=== PATIENT | male | born 1970 | race African-American/Black ===

== ENCOUNTER 2019-04-30 02:22 | Emergency (ER) | payer SELFPAY ==
[~2019-04-30] VITALS: Ht 188 cm; Wt 131.5 kg
[2019-04-30 02:31] VITALS: BP 123/84
[2019-04-30] MEDS ORDERED: KEPPRA500 M4 ORAL (02:31)
--- NOTE | 2019-04-30 02:31 | NUR ---
ED Nurse Note: Patient walked in to ER due to 4/10 sharp pain on right chest radiating to the back, SOB at rest since 1999. Pt alert, oriented. Breathing even and unlabored. O2 at 96% RA. Afebrile. VSS.
--- NOTE | 2019-04-30 02:43 | Emergency Room Report ---
History of Present Illness General Chief Complaint: Dyspnea/Respdistress Source: Patient Present Illness HPI This is a 48-year-old male with a history of seizure. He presents with chief complaint of chest pain. Pain started around 6 hours prior to arrival. It is sharp. Localized around the T3-T4 area on the right side. Radiating to the back. Is 8 out of 10. Worse with certain movement. Better with rest. No rash. No diaphoresis. No exertional component. Allergies: Coded Allergies: No Known Allergies (Unverified , 04/25/15) Patient History Past Medical History: see triage record, old chart reviewed Past Surgical History: none Pertinent Family History: none Social History: Denies: smoking Immunizations: other Reviewed Nursing Documentation: PMH: Agreed; PSxH: Agreed Nursing Documentation-PMH Past Medical History: No History, Except For Hx Seizures: Yes Review of Systems Eye: Denies: eye pain, blurred vision ENT: Denies: ear pain, nose congestion, throat swelling Respiratory: Denies: cough, shortness of breath Cardiovascular: Reports: chest pain; Denies: palpitations Gastrointestinal: Denies: abdominal pain, diarrhea, nausea, vomiting Musculoskeletal: Denies: back pain, joint pain Skin: Denies: rash Neurological: Denies: headache, numbness Endocrine: Denies: increased thirst, increased urine Hematologic/Lymphatic: Denies: easy bruising All Other Systems: negative except mentioned in HPI Physical Exam Vital Signs Date Time Temp Pulse Resp B/P (MAP) Pulse Ox O2 Delivery O2 Flow Rate FiO2 04/30/19 02:24 98.4 91 18 123/84 (97) 92 Room Air Vitals normal Sp02 EP Interpretation: reviewed, normal General Appearance: well appearing, no apparent distress, alert, obese Head: normocephalic, atraumatic Eyes: bilateral eye PERRL, bilateral eye EOMI ENT: hearing grossly normal, normal pharynx Neck: full range of motion, supple, no meningismus Respiratory: chest non-tender, lungs clear, normal breath sounds Cardiovascular #1: regular rate, rhythm, no murmur Gastrointestinal: normal bowel sounds, non tender, no mass, no organomegaly, no bruit, non-distended Musculoskeletal: back normal, gait/station normal, normal range of motion Psychiatric: mood/affect normal Medical Decision Making Diagnostic Impression: Primary Impression: Chest pain Qualified Codes: R07.9 - Chest pain, unspecified ER Course Patient with atypical chest pain to the right upper mid chest. No evidence of ACS, PE, dissection to name a few. Chest x-ray is unremarkable. Most likely musculoskeletal. This could also be shingles but there is no rash. Will discharge home. EKG Diagnostic Results Rate: normal Rhythm: NSR ST Segments: no acute changes Rhythm Strip Diag. Results EP Interpretation: yes Rate: 88 Rhythm: NSR, no PVC's, no ectopy Chest X-Ray Diagnostic Results Chest X-Ray Diagnostic Results : Chest X-Ray Ordered: Yes # of Views/Limited/Complete: 1 View Indication: Chest Pain EP Interpretation: Yes Interpretation: no consolidation, no effusion, no pneumothorax, no acute cardiopulmonary disease Impression: No acute disease Electronically Signed by: Richy Melara MD Last Vital Signs Date Time Temp Pulse Resp B/P (MAP) Pulse Ox O2 Delivery O2 Flow Rate FiO2 04/30/19 02:24 98.4 91 18 123/84 (97) 92 Room Air Status: improved Disposition: HOME, SELF-CARE Condition: Stable Scripts Ibuprofen* (MOTRIN*) 600 Mg Tablet 600 MG ORAL THREE TIMES A DAY, #30 TAB 0 Refills Prov: Richy Melara MD 04/30/19 Additional Instructions: Follow up with your doctor in 7 days. Return if symptoms worsen. Richy Melara MD Apr 30, 2019 02:42
[2019-04-30] MEDS ORDERED: Aspirin Baby 81mg ORAL ONE (02:45)
[2019-04-30] MEDS ORDERED: Ketorolac 30mg Inj IV ONE (02:45)
--- NOTE | 2019-04-30 02:51 | NUR ---
ED Nurse Note: Blood and urine collected and sent to lab.
--- NOTE | 2019-04-30 03:03 | NUR ---
ED Nurse Note: Xray at bedside.
[2019-04-30 03:05] LABS: APPEARANCE,URINE CLEAR; BILIRUBIN, URINE NEGATIVE (NEGATIVE); GLUCOSE, URINE (UA) NEGATIVE (NEGATIVE); KETONES,URINE NEGATIVE (NEGATIVE); LEUKOCYTE ESTERASE ,URINE NEGATIVE (NEGATIVE); NITRITE,URINE NEGATIVE (NEGATIVE); PH,URINE 6 (4.5-8.0); PROTEIN,URINE 2+ (NEGATIVE); UROBILINOGEN,URINE 1 MG/DL (0.0-1.0)
[2019-04-30 03:11] LABS: BASOPHILS % (AUTO) 1.4 % (0.0-2.0); EOSINOPHILS % (AUTO) 4.2 % (0.0-3.0); HEMATOCRIT 42.5 % (42.0-52.0); HEMOGLOBIN 14.2 G/DL (14.2-18.0); LYMPHOCYTES % (AUTO) 31.7 % (20.0-45.0); MEAN CORPUSCULAR VOLUME 85 FL (80-99); MONOCYTES % (AUTO) 7.4 % (1.0-10.0); NEUTROPHILS % (AUTO) 55.3 % (45.0-75.0); PLATELET COUNT 288 K/UL (150-450); RED CELL DISTRIBUTION WIDTH 12.7 % (11.6-14.8); WHITE BLOOD COUNT 9.9 K/UL (4.8-10.8)
[2019-04-30 03:13] LABS: COLOR,URINE YELLOW
[2019-04-30 03:16] LABS: ANION GAP 8 mmol/L (5-15); BLOOD UREA NITROGEN 21 mg/dL (7-18); CALCIUM 9.3 MG/DL (8.5-10.1); CARBON DIOXIDE 28 MMOL/L (21-32); CHLORIDE 105 MMOL/L (98-107); CREATININE 0.9 MG/DL (0.55-1.30); SODIUM 141 MMOL/L (136-145)
[2019-04-30 03:20] LABS: ALANINE AMINOTRANSFERASE 68 U/L (12-78); ALBUMIN 3.9 G/DL (3.4-5.0); ALBUMIN/GLOBULIN RATIO 1.1 (1.0-2.7); ALKALINE PHOSPHATASE 52 U/L (46-116); ASPARTATE AMINO TRANSFERASE 27 U/L (15-37); BILIRUBIN,TOTAL 0.3 MG/DL (0.2-1.0)
[2019-04-30] MEDS ORDERED: IBUPROFEN600 MG ORAL (04:07)
[2019-04-30 04:20] VITALS: BP 117/74
--- NOTE | 2019-04-30 04:20 | NUR ---
ED Nurse Note: Pt cleared by ERMD for discharge. DC instructions/prescription was given and explained to pt and verbalized understanding of teachings. All medical deviecs such as ID band and IV line removed. Pt is AAO x4, ambulatory and left with all personal belongings. Accompanied by a family member.
--- NOTE | 2019-04-30 12:25 | Diagnostic Imaging Report ---
Indication: Chest pain Comparison: None A single view chest radiograph was obtained. Findings: Cardiomediastinal appearance is within normal limits for age. The lungs are clear. Pulmonary vascularity is appropriate. The diaphragmatic contour is smooth and costophrenic angles are sharp. No pleural effusions are identified. The bones are unremarkable. Impression: No acute findings
--- NOTE | 2019-04-30 14:19 | Cardiology Report ---
APPROVED REPORT EKG Measurement Heart [id number] Normal sinus rhythm Normal ECG
== END 2019-04-30 04:20 | disposition home or self-care (01) ==
LOC: EMR 02:55
DX: R07.9 Chest pain, unspecified (principal)
CPT/HCPCS: 36415; 71045; 80053; 81003; 84484; 85025; 85379; 93005; 96374; 99284; J1885

== ENCOUNTER 2019-05-28 19:02 | Emergency (ER) | payer MEDICAID ==
[~2019-05-28] VITALS: Ht 172.7 cm; Wt 131.5 kg
[~2019-05-28 19:02] MED LIST: IBUPROFEN600 MG ORAL; KEPPRA500 M4 ORAL
[2019-05-28 19:03] VITALS: BP 132/79
--- NOTE | 2019-05-28 19:03 | NUR ---
ED Nurse Note: Patient brought in by RA from home d/t seizure witnessed seizure by roommate for about 30 secs to 1 min, denies head trauma. oral trauma d/t seizure. Alert and oriented, verbally respnsive. No SOB. Afebrile. VSS.
[2019-05-28] MEDS ORDERED: levETIRAcetam 500 MG in D5W 110 ML IV ONE (19:30)
--- NOTE | 2019-05-28 19:31 | NUR ---
ED Nurse Note: IV line established. Blood collected and sent to lab.
[2019-05-28 19:56] LABS: BASOPHILS % (AUTO) 1.6 % (0.0-2.0); EOSINOPHILS % (AUTO) 1.9 % (0.0-3.0); HEMOGLOBIN 15.9 G/DL (14.2-18.0); LYMPHOCYTES % (AUTO) 21.7 % (20.0-45.0); MEAN CORPUSCULAR VOLUME 84 FL (80-99); MONOCYTES % (AUTO) 8.1 % (1.0-10.0); NEUTROPHILS % (AUTO) 66.7 % (45.0-75.0); PLATELET COUNT 289 K/UL (150-450); RED BLOOD COUNT 5.72 M/UL (4.70-6.10); RED CELL DISTRIBUTION WIDTH 12.8 % (11.6-14.8); WHITE BLOOD COUNT 8.8 K/UL (4.8-10.8)
[2019-05-28 19:58] LABS: ANION GAP 9 mmol/L (5-15); BLOOD UREA NITROGEN 12 mg/dL (7-18); CALCIUM 9.4 MG/DL (8.5-10.1); CARBON DIOXIDE 29 MMOL/L (21-32); CHLORIDE 103 MMOL/L (98-107); CREATININE 0.9 MG/DL (0.55-1.30); POTASSIUM 4.4 MMOL/L (3.5-5.1); SODIUM 141 MMOL/L (136-145)
[2019-05-28 20:03] LABS: ALANINE AMINOTRANSFERASE 80 U/L (12-78); ALBUMIN 4.3 G/DL (3.4-5.0); ALKALINE PHOSPHATASE 56 U/L (46-116); ASPARTATE AMINO TRANSFERASE 39 U/L (15-37); BILIRUBIN,TOTAL 0.3 MG/DL (0.2-1.0)
[2019-05-28] MEDS ORDERED: KEPPRA500 M4 ORAL (20:19)
[2019-05-28 20:29] VITALS: BP 130/69
--- NOTE | 2019-05-28 20:29 | NUR ---
ED Nurse Note: Pt cleared by ERMD for discharge. DC instructions/prescription was given and explained to pt and verbalized understanding of teachings. All medical deviecs such as ID band and IV line removed. Pt is AAO x4, ambulatory and left with all personal belongings. Accompanied by his friends.
--- NOTE | 2019-05-28 21:06 | Emergency Room Report ---
History of Present Illness General Chief Complaint: Seizure Source: Patient Present Illness HPI 48-year-old male presents ED for evaluation. Brought in by EMS from home. Is post seizure. Witnessed by roommate today. Lasted about 30 seconds while in bed. No reported fall or head injury. Patient has history of seizures. States he takes Keppra but ran out of medication yesterday. Denies alcohol or drug use. States he feels well. Denies any headache. Denies any fevers or chills. Denies any neck stiffness. No other aggravating relieving factors. Denies any other associated symptoms Allergies: Coded Allergies: No Known Allergies (Unverified , 04/25/15) Patient History Past Medical History: seizures Past Surgical History: none Pertinent Family History: none Social History: Denies: smoking, alcohol use, drug use Immunizations: UTD Reviewed Nursing Documentation: PMH: Agreed; PSxH: Agreed Nursing Documentation-PMH Hx Seizures: Yes Review of Systems All Other Systems: negative except mentioned in HPI Physical Exam Vital Signs Date Time Temp Pulse Resp B/P (MAP) Pulse Ox O2 Delivery O2 Flow Rate FiO2 05/28/19 18:52 98.8 123 20 132/79 (96) 98 Room Air Sp02 EP Interpretation: reviewed, normal General Appearance: no apparent distress, alert, GCS 15, non-toxic Head: normocephalic, atraumatic Eyes: bilateral eye normal inspection, bilateral eye PERRL ENT: hearing grossly normal, normal pharynx, no angioedema, normal voice Neck: full range of motion, supple/symm/no masses Respiratory: chest non-tender, lungs clear, normal breath sounds, speaking full sentences Cardiovascular #1: regular rate, rhythm, no edema Cardiovascular #2: 2+ carotid (R), 2+ carotid (L), 2+ radial (R), 2+ radial (L) , 2+ dorsalis pedis (R), 2+ dorsalis pedis (L) Gastrointestinal: normal bowel sounds, non tender, soft, non-distended, no guarding, no rebound Rectal: deferred Genitourinary: normal inspection, no CVA tenderness Musculoskeletal: back normal, normal range of motion, gait/station normal, non- tender Neurologic: alert, motor strength/tone normal, oriented x3, sensory intact, responsive, speech normal Psychiatric: judgement/insight normal, memory normal, mood/affect normal, no suicidal/homicidal ideation Reflexes: 3+ bicep (R), 3+ bicep (L), 3+ tricep (R), 3+ tricep (L), 3+ knee (R) , 3+ knee (L) Lymphatic: no adenopathy Medical Decision Making Diagnostic Impression: Primary Impression: Seizure ER Course Hospital Course 48-year-old M presents to ED status post seizure. Differential diagnosis includes- breakthrough seizure, alcohol abuse, noncompliance with medication Clinical course Patient placed on stretcher. Initial history and physical I ordered labs, IV fluids, Keppra, EKG Labs-electrolytes okay, no leukocytosis, hemoglobin/hematocrit stable. EKG - sinus tachycardia no acute ischemic changes interpreted by me Patient allowed to rest is now awake alert oriented x3. ambulating without difficulty. Family is at bedside and can take patient home. Discussed findings with patient. Will discharge to home with refill of his Keppra. States he has a PMD Diagnosis - seizure stable and discharged to home with Rx Keppra. Followup with PMD. Return to ED if symptoms recur or worsen Labs Test 05/28/19 19:34 White Blood Count 8.8 K/UL (4.8-10.8) Red Blood Count 5.72 M/UL (4.70-6.10) Hemoglobin 15.9 G/DL (14.2-18.0) Hematocrit 48.0 % (42.0-52.0) Mean Corpuscular Volume 84 FL (80-99) Mean Corpuscular Hemoglobin 27.8 PG (27.0-31.0) Mean Corpuscular Hemoglobin Concent 33.1 G/DL (32.0-36.0) Red Cell Distribution Width 12.8 % (11.6-14.8) Platelet Count 289 K/UL (150-450) Mean Platelet Volume 7.7 FL (6.5-10.1) Neutrophils (%) (Auto) 66.7 % (45.0-75.0) Lymphocytes (%) (Auto) 21.7 % (20.0-45.0) Monocytes (%) (Auto) 8.1 % (1.0-10.0) Eosinophils (%) (Auto) 1.9 % (0.0-3.0) Basophils (%) (Auto) 1.6 % (0.0-2.0) Sodium Level 141 MMOL/L (136-145) Potassium Level 4.4 MMOL/L (3.5-5.1) Chloride Level 103 MMOL/L (98-107) Carbon Dioxide Level 29 MMOL/L (21-32) Anion Gap 9 mmol/L (5-15) Blood Urea Nitrogen 12 mg/dL (7-18) Creatinine 0.9 MG/DL (0.55-1.30) Estimat Glomerular Filtration Rate > 60 mL/min (>60) Glucose Level 104 MG/DL (74-106) Calcium Level 9.4 MG/DL (8.5-10.1) Total Bilirubin 0.3 MG/DL (0.2-1.0) Aspartate Amino Transf (AST/SGOT) 39 U/L (15-37) Alanine Aminotransferase (ALT/SGPT) 80 U/L (12-78) Alkaline Phosphatase 56 U/L (46-116) Total Protein 8.6 G/DL (6.4-8.2) Albumin 4.3 G/DL (3.4-5.0) Globulin 4.3 g/dL Albumin/Globulin Ratio 1.0 (1.0-2.7) Acetaminophen Level < 2 MCG/ML (10-30) Serum Alcohol < 3 mg/dL Last Vital Signs Date Time Temp Pulse Resp B/P (MAP) Pulse Ox O2 Delivery O2 Flow Rate FiO2 05/28/19 20:29 98.7 78 19 130/69 100 Room Air Status: improved Disposition: HOME, SELF-CARE Condition: Stable Scripts Levetiracetam (KEPPRA) 500 Mg Tablet 500 MG ORAL EVERY 12 HOURS for 30 Days, #60 TAB 0 Refills Prov: Bib Mcfarland MD 05/28/19 Referrals: NOT CHOSEN IPA/,REFERRING (PCP) Patient Instructions: Seizure, Adult Bib Mcfarland MD May 28, 2019 21:06
== END 2019-05-28 20:29 | disposition home or self-care (01) ==
LOC: EDBD 19:02 → EMR 19:45
DX: G40.909 Epilepsy, unspecified, not intractable, without status epilepticus (principal); R00.0 Tachycardia, unspecified
CPT/HCPCS: 80053; 85025; 93005; 96361; 96374; G0480; J1953; J7030; Z7502; 99284

== ENCOUNTER 2019-10-27 16:30 | Inpatient (IN) | payer MEDICAID ==
[~2019-10-27] VITALS: Ht 188 cm; Wt 171.0 kg
--- NOTE | 2019-10-27 16:30 | Emergency Room Report ---
History of Present Illness General Source: EMS Present Illness HPI Patient is a 48-year-old male past medical history of seizure disorder on Keppra and obesity who presents to the ER status post seizure. EMS brought patient in. EMS was called by family who stated the patient had a seizure. EMS gave the patient 10 mg of intramuscular Versed. Per EMS he has been in their system for seizures. Unable to obtain further history at this time due to the fact that the patient is post ictal Allergies: Coded Allergies: No Known Allergies (Unverified , 04/25/15) Patient History Reviewed Nursing Documentation: PMH: Agreed; PSxH: Agreed Review of Systems All Other Systems: limited - post ictal Physical Exam Sp02 EP Interpretation: reviewed, normal General Appearance: mild distress, lethargic, obese Head: normocephalic, atraumatic Eyes: bilateral eye normal inspection, bilateral eye PERRL ENT: EOM grossly intact, other - superifical bite awad to tongue Neck: full range of motion, supple/symm/no masses Respiratory: chest non-tender, lungs clear, normal breath sounds Cardiovascular #1: regular rate, rhythm, tachycardia Cardiovascular #2: 2+ carotid (R), 2+ carotid (L), 2+ radial (R), 2+ radial (L) Gastrointestinal: normal bowel sounds, non tender, soft, non-distended, no guarding, no rebound, other - obese abdomen Rectal: deferred Genitourinary: normal inspection, no CVA tenderness Musculoskeletal: back normal, normal range of motion, gait/station normal, non- tender Psychiatric: other - combative Skin: no rash Lymphatic: no adenopathy Procedures Critical Care Time Critical Care Time Total critical care time: Approximately [35] minutes. Due to a high probability of clinically significant, life threatening deterioration, the patient required my highest level of preparedness to intervene emergently and I personally spent this critical care time directly and personally managing the patient. This critical care time included obtaining a history; examining the patient; pulse oximetry; ordering and review of studies; arranging urgent treatment with development of a management plan; evaluation of patient's response to treatment; frequent reassessment; and, discussions with other providers.This critical care time was performed to assess and manage the high probability of imminent, life-threatening deterioration that could result in multi-organ failure. It was exclusive of separately billable procedures and treating other patients and teaching time. Please see MDM section and the rest of the note for further information on patient assessment and treatment. Medical Decision Making Diagnostic Impression: Primary Impression: Seizure Additional Impressions: Tachycardia Humeral fracture COVID-19 ruled out ER Course Re-eval at 450pm. Patient combative and tachycardic. Will administer 5mg IM haldol and 2mg IM ativan. Patient poses danger to self and interfering with medical care. Patient has been persistently tachycardic in the emergency room. D-dimer 3.5. CTA ordered to rule out pulmonary embolism. Patient's CT demonstrates bibasilar groundglass opacities consistent with viral pneumonia. I have ordered for blood cultures and IV antibiotics as well as COVID-19 swab. I spoke with Dr. Kerns from [facility] who states that he cannot transfer the patient at this time. Patient will be admitted for further treatment and evaluation. EKG Diagnostic Results EKG Time: 17:42 EP Interpretation: MD Anil Rate: tachycardiac Rhythm: other - sinus tachycardia ST Segments: no acute changes ASA given to the pt in ED: No Rhythm Strip Diag. Results Rhythm Strip Time: 17:05 EP Interpretation: yes Rate: 144 Rhythm: no PVC's, no ectopy, other - sinus tachycardia Disposition: ADMITTED INPATIENT Condition: Serious Physician Consult: MD Anil Whitley Carmela M.D. Oct 27, 2019 16:30
[2019-10-27] MEDS ORDERED: LORazepam Inj 2mg/ml 1ml IM ONE (16:45)
[2019-10-27] MEDS ORDERED: levETIRAcetam 1,000mg/NS100ml 100 ML IVPB ONE (16:45)
[2019-10-27] MEDS ORDERED: LORazepam Inj 2mg/ml 1ml ONE (16:46)
[2019-10-27] MEDS ORDERED: Haloperidol 5mg/ml Inj ONE (16:46)
[2019-10-27 16:50] VITALS: BP 158/100
[2019-10-27] MEDS ORDERED: Haloperidol 5mg/ml Inj IM ONE (17:00)
[2019-10-27 17:23] LABS: BASOPHILS % (AUTO) 2.4 % (0.0-2.0); EOSINOPHILS % (AUTO) 0.5 % (0.0-3.0); HEMATOCRIT 46.6 % (42.0-52.0); HEMOGLOBIN 14.9 G/DL (14.2-18.0); LYMPHOCYTES % (AUTO) 14.4 % (20.0-45.0); MEAN CORPUSCULAR VOLUME 87 FL (80-99); MONOCYTES % (AUTO) 8.5 % (1.0-10.0); NEUTROPHILS % (AUTO) 74.2 % (45.0-75.0); PLATELET COUNT 298 K/UL (150-450); RED BLOOD COUNT 5.36 M/UL (4.70-6.10); RED CELL DISTRIBUTION WIDTH 13.2 % (11.6-14.8); WHITE BLOOD COUNT 15.9 K/UL (4.8-10.8)
[2019-10-27 17:28] LABS: APPEARANCE,URINE CLEAR; BILIRUBIN, URINE NEGATIVE (NEGATIVE); COLOR,URINE PALE YELLOW; GLUCOSE, URINE (UA) 3+ (NEGATIVE); KETONES,URINE 2+ (NEGATIVE); LEUKOCYTE ESTERASE ,URINE NEGATIVE (NEGATIVE); NITRITE,URINE NEGATIVE (NEGATIVE); PH,URINE 5 (4.5-8.0); PROTEIN,URINE 4+ (NEGATIVE); UROBILINOGEN,URINE NORMAL MG/DL (0.0-1.0)
[2019-10-27 17:35] LABS: ANION GAP 14 mmol/L (5-15); BLOOD UREA NITROGEN 11 mg/dL (7-18); CALCIUM 9.4 MG/DL (8.5-10.1); CARBON DIOXIDE 25 MMOL/L (21-32); CHLORIDE 99 MMOL/L (98-107); CREATININE 1.2 MG/DL (0.55-1.30); POTASSIUM 4.2 MMOL/L (3.5-5.1); SODIUM 138 MMOL/L (136-145)
[2019-10-27 17:40] LABS: ALANINE AMINOTRANSFERASE 90 U/L (12-78); ALKALINE PHOSPHATASE 69 U/L (46-116); ASPARTATE AMINO TRANSFERASE 56 U/L (15-37); BILIRUBIN,TOTAL 0.3 MG/DL (0.2-1.0); PHOSPHORUS 3.7 MG/DL (2.5-4.9)
[2019-10-27] MEDS ORDERED: VITAMIN D3 COM1 EACH PO (18:14)
[2019-10-27] MEDS ORDERED: Acetaminophen 500mg (ES) tab ORAL ONE (18:15)
--- NOTE | 2019-10-27 18:28 | Diagnostic Imaging Report ---
EXAM: CT Head Without Intravenous Contrast CLINICAL HISTORY: AMS TECHNIQUE: Axial computed tomography images of the head/brain without intravenous contrast. CTDI is 107 mGy and DLP is 2144 mGy-cm. One or more of the following dose reduction techniques were used: automated exposure control, adjustment of the mA and/or kV according to patient size, use of iterative reconstruction technique. COMPARISON: No relevant prior studies available. FINDINGS: Brain: No acute intracranial abnormality. No hemorrhage. No significant white matter disease. Ventricles: Unremarkable. No ventriculomegaly. Bones/joints: Unremarkable. No acute fracture. Soft tissues: Unremarkable. Sinuses: Sphenoid sinus mucosal thickening and bubbly contents, correlate for sinusitis. Otherwise unremarkable paranasal sinuses. Mastoid air cells: Unremarkable as visualized. No mastoid effusion. IMPRESSION: 1. No acute intracranial abnormality. 2. Sphenoid sinus mucosal thickening and bubbly contents, correlate for sinusitis. 3. Otherwise unremarkable study.
[2019-10-27 18:31] VITALS: BP 110/70
--- NOTE | 2019-10-27 18:56 | Diagnostic Imaging Report ---
EXAM: XR Chest, 1 View CLINICAL HISTORY: TACHYP TECHNIQUE: Frontal view of the chest. COMPARISON: No relevant prior studies available. FINDINGS: Lungs: Low lung volumes with bronchovascular crowding. No consolidation, pleural effusion, or pneumothorax. Pleural space: See above. Heart: Unremarkable. No cardiomegaly. Mediastinum: Unremarkable. Bones/joints: Unremarkable. IMPRESSION: 1. Low lung volumes with bronchovascular crowding. 2. Otherwise no acute cardiopulmonary disease. 3. If there is continued concern, recommend frontal and lateral chest radiographs or CT.
--- NOTE | 2019-10-27 18:58 | Diagnostic Imaging Report ---
EXAM: XR Left Shoulder Complete, 2 or More Views CLINICAL HISTORY: PAIN TECHNIQUE: Two or more views of the left shoulder. COMPARISON: No relevant prior studies available. FINDINGS: Limitations: Study limited due to patient body habitus and positioning challenges. Bones/joints: Likely Neer 1 part comminuted left proximal humeral fracture. No dislocation. Soft tissues: Unremarkable. Other findings: If there is further concern, consider CT. IMPRESSION: 1. Study limited due to patient body habitus and positioning challenges. 2. Likely Neer 1 part comminuted left proximal humeral fracture. 3. If there is further concern, consider CT.
[2019-10-27 19:10] VITALS: BP 139/77
[2019-10-27] MEDS ORDERED: Omnipaque 350 100ml vial INJ PRN (19:15)
--- NOTE | 2019-10-27 20:17 | Diagnostic Imaging Report ---
EXAM: CT Chest With Intravenous Contrast CLINICAL HISTORY: PE TECHNIQUE: Axial computed tomographic images of the chest with intravenous contrast. CTDI is 150 mGy and DLP is 967 mGy-cm. One or more of the following dose reduction techniques were used: automated exposure control, adjustment of the mA and/or kV according to patient size, use of iterative reconstruction technique. Coronal and sagittal reformatted images were created and reviewed. COMPARISON: No relevant prior studies available. FINDINGS: Pulmonary arteries: Respiratory motion artifact, bolus timing, and suboptimal pulmonary artery opacification artifact limits evaluation for small and distal pulmonary emboli. No large or central pulmonary embolism seen. Aorta: No acute findings. No thoracic aortic aneurysm. Lungs: Scattered areas of peripheral left lung lower lobe mild groundglass attenuation could be incidental, or could represent an infectious or inflammatory process. In the proper context, this could also represent viral pneumonia. No mass. Pleural space: Unremarkable. No significant effusion. No pneumothorax. Heart: Unremarkable. No cardiomegaly. No significant pericardial effusion. No evidence of RV dysfunction. Bones/joints: Comminuted left humeral head likely Neer 2 part fracture and moderately displaced coracoid process fracture. Otherwise unremarkable bones. No dislocation. Soft tissues: Unremarkable. Lymph nodes: Unremarkable. No enlarged lymph nodes. Liver: Hepatic steatosis, correlate to exclude steatohepatitis. IMPRESSION: 1. Respiratory motion artifact, bolus timing, and suboptimal pulmonary artery opacification artifact limits evaluation for small and distal pulmonary emboli. 2. No large or central pulmonary embolism seen. 3. Scattered areas of peripheral left lung lower lobe mild groundglass attenuation could be incidental, or could represent an infectious or inflammatory process. In the proper context, this could also represent viral pneumonia. 4. Comminuted left humeral head likely Neer 2 part fracture and moderately displaced coracoid process fracture. 5. Hepatic steatosis, correlate to exclude steatohepatitis.
[2019-10-27] MEDS ORDERED: Cefepime HCl 2 GM in D5W 55 ML IVPB ONE (20:45)
[2019-10-27] MEDS ORDERED: Azithromycin 500 MG in D5W 275 ML IV ONE (20:45)
[2019-10-27] MEDS ORDERED: traMADol 50mg tab ORAL ONE (21:00)
[2019-10-27 21:07] VITALS: BP 141/78
[2019-10-27] MEDS ORDERED: Morphine Sulfate 4mg/ml Inj (IV USE ONLY) IVP PRN (21:30)
[2019-10-27] MEDS ORDERED: Morphine Sulfate 2mg/ml Inj(IV/IM USE ONLY) IVP PRN (21:30)
[2019-10-27] MEDS ORDERED: Nitroglycerin Subl 0.4mg tab SL PRN (21:30)
[2019-10-27] MEDS ORDERED: LORazepam Inj 2mg/ml 1ml IV PRN (21:30)
--- NOTE | 2019-10-27 21:42 | History and Physical ---
History of Present Illness General Date patient seen: Oct 27, 2019 Reason for Hospitalization: Seizure Present Illness HPI 48-year-old male past medical history of seizure disorder on Keppra and obesity who presents to the ER status post seizure and fall. EMS was called by family who stated the patient had a seizure. EMS gave the patient 10 mg of intramuscular Versed. Per EMS he has been in their system for seizures. Unable to obtain further history at this time due to the fact that the patient is post ictal. In the ER the patient was loaded with 1000 mg Keppra IV and imaging studies were positive for possible peumonia - ground glass noted in the bases of his lungs and a L humeral and coracoid process fracture. Admission is requested and he was placed in isolation rule out COVID 19. The patient reports having his first seizure in 2011 and starting medication Keppra AED 4 months ago by his PCP recommendation. He denies having EEG in the past and has not see a neurologist. Allergies: Coded Allergies: No Known Allergies (Unverified , 04/25/15) COVID-19 Screening Contact w/high risk pt: No Recent Travel to affected area: No Experienced COVID-19 symptoms?: No Medication History Scheduled Levetiracetam (Keppra), 500 MG ORAL EVERY 12 HOURS, (Reported) Miscellaneous Medications Cholecalciferol (Vitamin D3) (Vitamin D3), 2,000 UNIT MC, (Reported) Discontinued Medications Ibuprofen (Motrin), 600 MG ORAL THREE TIMES A DAY Discontinued Reason: MD discontinued med Levetiracetam (Keppra), 500 MG ORAL EVERY 12 HOURS Discontinued Reason: discontinued med Mv-Mn/Iron/Fa/Herbal Cmplx#190 (Vitamin D3 Complete Caplet), 1 EACH PO DAILY, ( Reported) Discontinued Reason: MD discontinued med Patient History Healthcare decision maker Resuscitation status Advanced Directive on File Review of Systems All Other Systems: negative except mentioned in HPI ROS Narrative Patient does not remember events and woke up with L shoulder pain. 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 Last 24 Hour Vital Signs Date Time Temp Pulse Resp B/P (MAP) Pulse Ox O2 Delivery O2 Flow Rate FiO2 10/27/19 21:07 131 24 141/78 97 Nasal Cannula 3.0 10/27/19 19:10 99.0 128 24 139/77 98 Room Air 10/27/19 19:10 99.0 10/27/19 18:31 99.0 137 28 110/70 98 Room Air 10/27/19 16:50 99.0 137 28 158/100 98 Room Air 10/27/19 16:50 116 16 Room Air 10/27/19 16:27 99.0 116 16 176/106 (129) 98 Room Air Laboratory Tests Test 10/27/19 16:40 10/27/19 17:00 10/27/19 18:41 Urine Color Pale yellow Urine Appearance Clear Urine pH 5 (4.5-8.0) Urine Specific [place] 1.025 (1.005-1.035) Urine Protein 4+ (NEGATIVE) H Urine Glucose (UA) 3+ (NEGATIVE) H Urine Ketones 2+ (NEGATIVE) H Urine Blood 4+ (NEGATIVE) H Urine Nitrite Negative (NEGATIVE) Urine Bilirubin Negative (NEGATIVE) Urine Urobilinogen Normal MG/DL (0.0-1.0) Urine Leukocyte Esterase Negative (NEGATIVE) Urine RBC 2-4 /HPF (0 - 0) H Urine WBC 0 /HPF (0 - 0) Urine Squamous Epithelial Cells Occasional /LPF Urine Bacteria Occasional /HPF (NONE) Urine Coarse Granular Casts 0-2 /LPF (NONE) H Urine Opiates Screen Negative (NEGATIVE) Urine Barbiturates Screen Negative (NEGATIVE) Phencyclidine (PCP) Screen Negative (NEGATIVE) Urine Amphetamines Screen Negative (NEGATIVE) Urine Benzodiazepines Screen Negative (NEGATIVE) Urine Cocaine Screen Negative (NEGATIVE) Urine Marijuana (THC) Screen Positive (NEGATIVE) H White Blood Count 15.9 K/UL (4.8-10.8) H Red Blood Count 5.36 M/UL (4.70-6.10) Hemoglobin 14.9 G/DL (14.2-18.0) Hematocrit 46.6 % (42.0-52.0) Mean Corpuscular Volume 87 FL (80-99) Mean Corpuscular Hemoglobin 27.8 PG (27.0-31.0) Mean Corpuscular Hemoglobin Concent 31.9 G/DL (32.0-36.0) L Red Cell Distribution Width 13.2 % (11.6-14.8) Platelet Count 298 K/UL (150-450) Mean Platelet Volume 9.5 FL (6.5-10.1) Neutrophils (%) (Auto) 74.2 % (45.0-75.0) Lymphocytes (%) (Auto) 14.4 % (20.0-45.0) L Monocytes (%) (Auto) 8.5 % (1.0-10.0) Eosinophils (%) (Auto) 0.5 % (0.0-3.0) Basophils (%) (Auto) 2.4 % (0.0-2.0) H D-Dimer 3.37 mg/L FEU (0.00-0.49) H Sodium Level 138 MMOL/L (136-145) Potassium Level 4.2 MMOL/L (3.5-5.1) Chloride Level 99 MMOL/L (98-107) Carbon Dioxide Level 25 MMOL/L (21-32) Anion Gap 14 mmol/L (5-15) Blood Urea Nitrogen 11 mg/dL (7-18) Creatinine 1.2 MG/DL (0.55-1.30) Estimat Glomerular Filtration Rate > 60 mL/min (>60) Glucose Level 334 MG/DL (74-106) H Calcium Level 9.4 MG/DL (8.5-10.1) Phosphorus Level 3.7 MG/DL (2.5-4.9) Magnesium Level 1.6 MG/DL (1.8-2.4) L Total Bilirubin 0.3 MG/DL (0.2-1.0) Aspartate Amino Transf (AST/SGOT) 56 U/L (15-37) H Alanine Aminotransferase (ALT/SGPT) 90 U/L (12-78) H Alkaline Phosphatase 69 U/L (46-116) Troponin I 0.020 ng/mL (0.000-0.056) Total Protein 8.2 G/DL (6.4-8.2) Albumin 4.0 G/DL (3.4-5.0) Globulin 4.2 g/dL Albumin/Globulin Ratio 1.0 (1.0-2.7) Arterial Blood pH 7.390 (7.350-7.450) Arterial Blood Partial Pressure CO2 38.2 mmHg (35.0-45.0) Arterial Blood Partial Pressure O2 94.9 mmHg (75.0-100.0) Arterial Blood HCO3 22.9 mmol/L (22.0-26.0) Arterial Blood Oxygen Saturation 97.1 % (95-100) Arterial Blood Base Excess -1.7 (-2-2) Daryl Test Positive Height (Feet): 6 Weight (Pounds): 450 Medications Current Medications Medications (Trade) Dose Ordered Sig/Carlos Eduardo Route PRN Reason Start Time Stop Time Status Last Admin Dose Admin Azithromycin 500 mg/Dextrose 275 ml @ 275 mls/hr ONCE ONCE IV 10/27/19 20:45 10/27/19 21:44 10/27/19 20:42 Iohexol (Omnipaque 350 100ml) 100 ml NOW PRN INJ Radiology Procedure 10/27/19 19:15 10/29/19 19:04 Assessment/Plan Status: stable Assessment/Plan: 48 y/o male admitted to the hospital with: # Unwitnessed seizure Keppra load 1000mg given in ER Will continue and increase his home dose Keppra from 500 to 750 mg BID EEG when covid 19 is ruled out Follow up with neurology. If no more seizures during the hospital stay it can be done as outpatient. Seizure precaution Fall precaution Ativan PRN if needed # Rule out Covid 19 started in ER # L humeral fracture Dr. Genao consulted # Obesity Lipid panel and HbA1c # Hypertensive heart disease Start metoprolol and monitor # Probable TERRENCE Monitor for hypoxia Pulmonary outpatient follow up for sleep study # DVT ppx # GI ppx # FULL CODE Roque Whitley MD Oct 27, 2019 21:42
[2019-10-27] MEDS ORDERED: VITAMIN D32400 UNIT/ MC (21:49)
[2019-10-28] MEDS ORDERED: Cefepime 2gm ONE (04:01)
[2019-10-28] MEDS ORDERED: Cefepime HCl 2 GM in D5W 55 ML IVPB ONE (06:00)
[2019-10-28 06:08] LABS: BASOPHILS % (AUTO) 0.7 % (0.0-2.0); EOSINOPHILS % (AUTO) 0.1 % (0.0-3.0); HEMOGLOBIN 14.4 G/DL (14.2-18.0); LYMPHOCYTES % (AUTO) 14.1 % (20.0-45.0); MEAN CORPUSCULAR VOLUME 83 FL (80-99); MONOCYTES % (AUTO) 8.1 % (1.0-10.0); NEUTROPHILS % (AUTO) 77.1 % (45.0-75.0); PLATELET COUNT 251 K/UL (150-450); RED BLOOD COUNT 4.96 M/UL (4.70-6.10); WHITE BLOOD COUNT 14.7 K/UL (4.8-10.8)
[2019-10-28 06:18] LABS: ALKALINE PHOSPHATASE 58 U/L (46-116); ANION GAP 11 mmol/L (5-15); BLOOD UREA NITROGEN 8 mg/dL (7-18); CALCIUM 8.9 MG/DL (8.5-10.1); CARBON DIOXIDE 28 MMOL/L (21-32); CHLORIDE 100 MMOL/L (98-107); CHOLESTEROL 196 MG/DL (< 200); CREATININE 0.9 MG/DL (0.55-1.30); HDL CHOLESTEROL 56 MG/DL (40-60); POTASSIUM 4.1 MMOL/L (3.5-5.1); SODIUM 139 MMOL/L (136-145); TRIGLYCERIDES 127 MG/DL (30-150)
[2019-10-28 08:00] VITALS: BP 142/59
[2019-10-28] MEDS: Docusate 100mg cap ORAL SCH ×2 (08:12→20:54)
[2019-10-28] MEDS ORDERED: Azithromycin 250mg tab ORAL SCH (09:00)
[2019-10-28] MEDS ORDERED: Enoxaparin 40mg Inj SUBQ SCH (09:00)
--- NOTE | 2019-10-28 11:29 | General Progress Note ---
Assessment/Plan Status: stable Assessment/Plan: 48 y/o male admitted to the hospital with: # Unwitnessed seizure Keppra load 1000mg given in ER Will continue and increase his home dose Keppra from 500 to 750 mg BID EEG when covid 19 is ruled out Follow up with neurology. If no more seizures during the hospital stay it can be done as outpatient. Seizure precaution Fall precaution Ativan PRN if needed # Rule out Covid 19 started in ER # L humeral fracture Dr. Genao consulted and CT ordered. Case manger consult to inquire about coverage. If patient needs surgery insurance needs to approve or refer to contracted hospital. # Obesity Lipid panel and HbA1c is 8.7 Start Sliding scale and oral therapy will be needed. Await for clinical improvement before Metformin therapy. DM education and diet. # Hypertensive heart disease Start metoprolol and monitor # Probable TERRENCE Monitor for hypoxia Pulmonary outpatient follow up for sleep study # DVT ppx # GI ppx # FULL CODE Subjective Date patient seen: Oct 28, 2019 Time patient seen: 10:00 ROS Limited/Unobtainable: No Allergies: Coded Allergies: No Known Allergies (Unverified , 04/25/15) All Systems: reviewed and negative except above Subjective Left shoulder pain. No seizures noted overnight. Objective Last 24 Hour Vital Signs Date Time Temp Pulse Resp B/P (MAP) Pulse Ox O2 Delivery O2 Flow Rate FiO2 10/28/19 08:12 120 142/69 10/28/19 08:00 107 10/28/19 04:00 Room Air 2.0 10/28/19 04:00 115 10/28/19 02:36 99.7 10/28/19 01:44 Room Air 10/28/19 01:33 120 10/28/19 01:15 99.0 123 22 137/89 98 Nasal Cannula 3.0 10/27/19 21:07 131 24 141/78 97 Nasal Cannula 3.0 10/27/19 19:10 99.0 128 24 139/77 98 Room Air 10/27/19 19:10 99.0 10/27/19 18:31 99.0 137 28 110/70 98 Room Air 10/27/19 16:50 99.0 137 28 158/100 98 Room Air 10/27/19 16:50 116 16 Room Air 10/27/19 16:27 99.0 116 16 176/106 (129) 98 Room Air Intake and Output 10/27/19 10/28/19 19:00 07:00 Intake Total 1010 ml Output Total 2000 ml Balance -990 ml Intake IV Total 1010 ml Output Urine Total 2000 ml Laboratory Tests 10/27/19 16:40: Urine Color Pale yellow, Urine Appearance Clear, Urine pH 5, Urine Specific [place] 1.025, Urine Protein 4+H, Urine Glucose (UA) 3+H, Urine Ketones 2+H, Urine Blood 4+H, Urine Nitrite Negative, Urine Bilirubin Negative, Urine Urobilinogen Normal, Urine Leukocyte Esterase Negative, Urine RBC 2-4H, Urine WBC 0, Urine Squamous Epithelial Cells Occasional, Urine Bacteria Occasional, Urine Coarse Granular Casts 0-2H, Urine Opiates Screen Negative, Urine Barbiturates Screen Negative, Phencyclidine (PCP) Screen Negative, Urine Amphetamines Screen Negative, Urine Benzodiazepines Screen Negative, Urine Cocaine Screen Negative, Urine Marijuana (THC) Screen PositiveH 10/27/19 17:00: White Blood Count 15.9H, Red Blood Count 5.36, Hemoglobin 14.9, Hematocrit 46.6 , Mean Corpuscular Volume 87, Mean Corpuscular Hemoglobin 27.8, Mean Corpuscular Hemoglobin Concent 31.9L, Red Cell Distribution Width 13.2, Platelet Count 298, Mean Platelet Volume 9.5, Neutrophils (%) (Auto) 74.2, Lymphocytes (%) (Auto) 14.4L, Monocytes (%) (Auto) 8.5, Eosinophils (%) (Auto) 0.5, Basophils (%) (Auto) 2.4H, D-Dimer 3.37H, Sodium Level 138, Potassium Level 4.2, Chloride Level 99, Carbon Dioxide Level 25, Anion Gap 14, Blood Urea Nitrogen 11, Creatinine 1.2, Estimat Glomerular Filtration Rate > 60, Glucose Level 334H, Calcium Level 9.4, Phosphorus Level 3.7, Magnesium Level 1.6L, Total Bilirubin 0.3, Aspartate Amino Transf (AST/SGOT) 56H, Alanine Aminotransferase (ALT/SGPT) 90H, Alkaline Phosphatase 69, Troponin I 0.020, Total Protein 8.2, Albumin 4.0, Globulin 4.2, Albumin/Globulin Ratio 1.0 10/27/19 18:41: Arterial Blood pH 7.390, Arterial Blood Partial Pressure CO2 38.2, Arterial Blood Partial Pressure O2 94.9, Arterial Blood HCO3 22.9, Arterial Blood Oxygen Saturation 97.1, Arterial Blood Base Excess -1.7, Daryl Test Positive 10/28/19 03:50: White Blood Count 14.7H, Red Blood Count 4.96, Hemoglobin 14.4, Hematocrit 41.0L , Mean Corpuscular Volume 83, Mean Corpuscular Hemoglobin 29.1, Mean Corpuscular Hemoglobin Concent 35.2, Red Cell Distribution Width 12.0, Platelet Count 251, Mean Platelet Volume 8.2, Neutrophils (%) (Auto) 77.1H, Lymphocytes ( %) (Auto) 14.1L, Monocytes (%) (Auto) 8.1, Eosinophils (%) (Auto) 0.1, Basophils (%) (Auto) 0.7, Sodium Level 139, Potassium Level 4.1, Chloride Level 100, Carbon Dioxide Level 28, Anion Gap 11, Blood Urea Nitrogen 8, Creatinine 0.9, Estimat Glomerular Filtration Rate > 60, Glucose Level 216#H, Calcium Level 8.9, Magnesium Level 1.9, Alkaline Phosphatase 58, Hemoglobin A1c 8.7H, Triglycerides Level 127, Cholesterol Level 196, LDL Cholesterol 112H, HDL Cholesterol 56, Cholesterol/HDL Ratio 3.5 Height (Feet): 6 Height (Inches): 2.00 Weight (Pounds): 379 General Appearance: WD/WN Cardiovascular: normal rate Respiratory/Chest: lungs clear Abdomen: non tender Edema: trace edema 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
[2019-10-28 12:00] VITALS: BP 145/104
[2019-10-28] MEDS: NovoLOG Insulin Flexpen SUBQ SCH ×3 (12:34→20:55)
[2019-10-28 16:00] VITALS: BP 144/86
--- NOTE | 2019-10-28 18:15 | Consultation ---
DATE OF CONSULTATION: 10/28/2019 ORTHOPEDIC CONSULTATION CONSULTING PHYSICIAN: Stanley Genao MD. REQUESTING PHYSICIAN: Roque Whitley MD. DIAGNOSIS: Left proximal humerus fracture. BACKGROUND: The patient is a morbidly obese gentleman with seizure disorder, who sustained a seizure. He was brought in to the hospital and he is a person of interest for COVID evaluation; those results are still pending. He takes ibuprofen and Keppra. PHYSICAL EXAMINATION: Examination was performed at a distance because of isolation in the intensive care. He is morbidly obese and not able to easily lift the left arm. Detailed neurovascular examination is reserved for when contact precautions are lifted and COVID test is evaluated and available (since this is not an emergency evaluation). Radiographs show a comminuted proximal humerus fracture with possible coracoid fracture as well. There was no dedicated CT scan for the shoulder. The patient sustained proximal humerus fracture on the left. He may require operative intervention. Though time is of the essence, this is not emergent. CT scan with 3D reconstruction of the shoulder is requested and will be evaluated when available. Determination of operative versus nonoperative management will be made at that time. Thank you for the opportunity to consult. Stanley Genao M.D. DR: MAGDA JOB#: [id number] CC:
[2019-10-28 20:00] VITALS: BP 117/81
[2019-10-29] VITALS: BP 138/94
[2019-10-29 04:00] VITALS: BP 126/66
[2019-10-29] MEDS: NovoLOG Insulin Flexpen SUBQ SCH ×4 (05:57→22:22)
[2019-10-29 06:08] LABS: BASOPHILS % (AUTO) 1.3 % (0.0-2.0); HEMATOCRIT 40.8 % (42.0-52.0); HEMOGLOBIN 13.9 G/DL (14.2-18.0); LYMPHOCYTES % (AUTO) 21.7 % (20.0-45.0); MEAN CORPUSCULAR VOLUME 84 FL (80-99); PLATELET COUNT 230 K/UL (150-450); RED BLOOD COUNT 4.87 M/UL (4.70-6.10); RED CELL DISTRIBUTION WIDTH 12.1 % (11.6-14.8)
[2019-10-29 06:30] LABS: ALANINE AMINOTRANSFERASE 74 U/L (12-78); ALBUMIN 3.3 G/DL (3.4-5.0); ALBUMIN/GLOBULIN RATIO 0.8 (1.0-2.7); ALKALINE PHOSPHATASE 58 U/L (46-116); ANION GAP 10 mmol/L (5-15); ASPARTATE AMINO TRANSFERASE 60 U/L (15-37); BILIRUBIN,TOTAL 0.5 MG/DL (0.2-1.0); BLOOD UREA NITROGEN 11 mg/dL (7-18); CALCIUM 8.7 MG/DL (8.5-10.1); CARBON DIOXIDE 28 MMOL/L (21-32); CHLORIDE 100 MMOL/L (98-107); POTASSIUM 3.9 MMOL/L (3.5-5.1); SODIUM 138 MMOL/L (136-145)
[2019-10-29] MEDS ORDERED: Nitroglycerin Subl 0.4mg tab SL PRN (07:00)
[2019-10-29] MEDS ORDERED: Morphine Sulfate 4mg/ml Inj (IV USE ONLY) IVP PRN (07:15)
[2019-10-29] MEDS ORDERED: LORazepam Inj 2mg/ml 1ml IV PRN (07:15)
[2019-10-29] MEDS ORDERED: Morphine Sulfate 2mg/ml Inj(IV/IM USE ONLY) IVP PRN (07:15)
[2019-10-29 08:00] VITALS: BP 123/62
[2019-10-29] MEDS: Docusate 100mg cap ORAL SCH ×3 (09:00→21:00)
[2019-10-29] MEDS ORDERED: Omnipaque 350 100ml vial INJ PRN (09:00)
[2019-10-29] MEDS: Azithromycin 250mg tab ORAL SCH (09:40)
[2019-10-29] MEDS: Enoxaparin 40mg Inj SUBQ SCH (09:43)
[2019-10-29 12:00] VITALS: BP 129/70
[2019-10-29] MEDS ORDERED: NS 275ml ONE (13:02)
[2019-10-29] MEDS ORDERED: Tubing IV Secondary IV ONE (13:02)
[2019-10-29] MEDS ORDERED: 1/2 NS 1000ml IV ONE (13:02)
[2019-10-29 16:00] VITALS: BP 138/83
--- NOTE | 2019-10-29 16:22 | General Progress Note ---
Assessment/Plan Status: stable Assessment/Plan: 48 y/o male admitted to the hospital with: # Unwitnessed seizure Keppra load 1000mg given in ER Will continue and increased his home dose Keppra from 500 to 750 mg BID EEG when covid 19 is ruled out Follow up with neurology. If no more seizures during the hospital stay it can be done as outpatient. Seizure precaution Fall precaution Ativan PRN if needed # Rule out Covid 19 started in ER # L humeral fracture Dr. Genao consulted and CT ordered. Case manger consult to inquire about coverage. If patient needs surgery insurance needs to approve or refer to contracted hospital. Per RN report [employer] insurance approved management of humeral fracture. Updated Dr. Genao and pending CT to decide if surgery is needed. # Obesity Lipid panel and HbA1c is 8.7 Start Sliding scale and oral therapy will be needed. Await for clinical improvement before Metformin therapy. DM education and diet. # Hypertensive heart disease Start metoprolol and monitor # Probable TERRENCE Monitor for hypoxia Pulmonary outpatient follow up for sleep study. PCP appt pending for 11/15 Trial of CPAP qhs # DVT ppx # GI ppx # FULL CODE Subjective Date patient seen: Oct 29, 2019 Time patient seen: 16:30 ROS Limited/Unobtainable: No Allergies: Coded Allergies: No Known Allergies (Unverified , 04/25/15) Subjective Left shoulder pain. No seizures noted since admission. CT humerus NOT done yet due to isolation and pending covid test result Objective Last 24 Hour Vital Signs Date Time Temp Pulse Resp B/P (MAP) Pulse Ox O2 Delivery O2 Flow Rate FiO2 10/29/19 12:00 92 10/29/19 12:00 98.4 108 20 129/70 (89) 94 10/29/19 12:00 Nasal Cannula 2.0 10/29/19 09:56 107 123/62 10/29/19 08:00 98.0 107 14 123/62 (82) 94 10/29/19 08:00 99 10/29/19 08:00 Nasal Cannula 2.0 10/29/19 04:00 110 10/29/19 04:00 98.8 107 14 126/66 (86) 96 10/29/19 04:00 Nasal Cannula 2.0 10/29/19 00:00 99.0 103 16 138/94 (109) 98 10/29/19 00:00 Nasal Cannula 2.0 10/29/19 00:00 103 10/28/19 20:54 120 117/18 10/28/19 20:00 99.2 113 17 117/81 (93) 95 10/28/19 20:00 118 10/28/19 20:00 Nasal Cannula 2.0 Intake and Output 10/28/19 10/29/19 19:00 07:00 Intake Total 200 ml 360 ml Output Total 500 ml 600 ml Balance -300 ml -240 ml Intake Oral 200 ml 360 ml Output Urine Total 500 ml 600 ml # Voids 1 # Bowel Movements 2 Laboratory Tests 10/29/19 04:21: White Blood Count 13.0H, Red Blood Count 4.87, Hemoglobin 13.9L, Hematocrit 40.8L, Mean Corpuscular Volume 84, Mean Corpuscular Hemoglobin 28.6, Mean Corpuscular Hemoglobin Concent 34.2, Red Cell Distribution Width 12.1, Platelet Count 230, Mean Platelet Volume 7.7, Neutrophils (%) (Auto) 64.0, Lymphocytes (% ) (Auto) 21.7, Monocytes (%) (Auto) 11.0H, Eosinophils (%) (Auto) 2.0, Basophils (%) (Auto) 1.3, Sodium Level 138, Potassium Level 3.9, Chloride Level 100, Carbon Dioxide Level 28, Anion Gap 10, Blood Urea Nitrogen 11, Creatinine 1.0, Estimat Glomerular Filtration Rate > 60, Glucose Level 281H, Calcium Level 8.7, Total Bilirubin 0.5, Aspartate Amino Transf (AST/SGOT) 60H, Alanine Aminotransferase (ALT/SGPT) 74, Alkaline Phosphatase 58, Total Protein 7.6, Albumin 3.3L, Globulin 4.3, Albumin/Globulin Ratio 0.8L Height (Feet): 6 Height (Inches): 2.00 Weight (Pounds): 378 General Appearance: WD/WN EENT: normal ENT inspection Neck: supple, other - short and thick neck Cardiovascular: normal rate Respiratory/Chest: lungs clear, decreased breath sounds Abdomen: non tender Extremities: other - Left shoulder pain 6/10 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
[2019-10-29 20:00] VITALS: BP 143/89
[2019-10-30] VITALS: BP 121/75
[2019-10-30 04:00] VITALS: BP 161/80
[2019-10-30] MEDS: NovoLOG Insulin Flexpen SUBQ SCH ×4 (06:04→20:40)
[2019-10-30 06:24] LABS: BASOPHILS % (AUTO) 1.2 % (0.0-2.0); EOSINOPHILS % (AUTO) 2.4 % (0.0-3.0); HEMATOCRIT 39.8 % (42.0-52.0); HEMOGLOBIN 13.9 G/DL (14.2-18.0); LYMPHOCYTES % (AUTO) 22.7 % (20.0-45.0); MEAN CORPUSCULAR VOLUME 83 FL (80-99); MONOCYTES % (AUTO) 10.4 % (1.0-10.0); NEUTROPHILS % (AUTO) 63.3 % (45.0-75.0); PLATELET COUNT 229 K/UL (150-450); RED BLOOD COUNT 4.77 M/UL (4.70-6.10); RED CELL DISTRIBUTION WIDTH 11.8 % (11.6-14.8); WHITE BLOOD COUNT 13.1 K/UL (4.8-10.8)
[2019-10-30 06:42] LABS: ANION GAP 10 mmol/L (5-15); BLOOD UREA NITROGEN 10 mg/dL (7-18); CARBON DIOXIDE 29 MMOL/L (21-32); CHLORIDE 101 MMOL/L (98-107); CREATININE 0.9 MG/DL (0.55-1.30); POTASSIUM 3.7 MMOL/L (3.5-5.1); SODIUM 140 MMOL/L (136-145)
[2019-10-30 08:00] VITALS: BP 117/72
[2019-10-30] MEDS: Azithromycin 250mg tab ORAL SCH (08:46)
[2019-10-30] MEDS: Enoxaparin 40mg Inj SUBQ SCH (08:48)
[2019-10-30] MEDS: Docusate 100mg cap ORAL SCH ×2 (09:00→20:40)
[2019-10-30 12:00] VITALS: BP 129/74
--- NOTE | 2019-10-30 14:46 | General Progress Note ---
Assessment/Plan Status: stable Assessment/Plan: 48 y/o male admitted to the hospital with: # Unwitnessed seizure Keppra load 1000mg given in ER Will continue and increased his home dose Keppra from 500 to 750 mg BID Follow up with neurology. If no more seizures during the hospital stay it can be done as outpatient. Seizure precaution Fall precaution Ativan PRN if needed # Rule out Covid 19 started in ER is now NEGATIVE Transfer to Med surg No need for droplet isolation. # L humeral fracture Dr. Genao consulted and CT ordered. Case manger consult to inquire about coverage. If patient needs surgery insurance needs to approve or refer to contracted hospital. Per RN report [employer] insurance approved management of humeral fracture. Updated Dr. Genao and pending CT for final recommendation. Most likely sub acute surgical management in the next 10-14 days with [facility] contracted orthopedist will be done. Patient is high risk for surgery and trauma center can suit his needs better. # Obesity Lipid panel and HbA1c is 8.7 Start Sliding scale and oral therapy will be needed. Await for clinical improvement before Metformin therapy. DM education and diet. # Hypertensive heart disease Start metoprolol and monitor # Probable TERRENCE Monitor for hypoxia Pulmonary outpatient follow up for sleep study. PCP appt pending for 11/15 Trial of CPAP qhs # Possible underlying infection/bacteremia 2/2 blood cultures positive and preliminary. Micro lab was called today and no final report. No acute signs of infection are noted and until final report is back Vancomycin will be used. # DVT ppx # GI ppx # FULL CODE Subjective Date patient seen: Oct 30, 2019 Time patient seen: 12:30 ROS Limited/Unobtainable: No Allergies: Coded Allergies: No Known Allergies (Unverified , 04/25/15) Subjective Left shoulder pain is better. No seizures noted since admission. CT humerus in process today. Objective Last 24 Hour Vital Signs Date Time Temp Pulse Resp B/P (MAP) Pulse Ox O2 Delivery O2 Flow Rate FiO2 10/30/19 12:00 97.2 99 20 129/74 (92) 94 10/30/19 12:00 Nasal Cannula 3.0 10/30/19 08:42 98 117/72 10/30/19 08:00 Nasal Cannula 3.0 10/30/19 08:00 97.5 111 20 117/72 (87) 95 111 10/30/19 07:55 94 Nasal Cannula 3.0 32 10/30/19 04:00 Nasal Cannula 3.0 10/30/19 04:00 99.9 116 24 161/80 (107) 94 10/30/19 03:27 113 10/30/19 00:00 125 10/30/19 00:00 99.4 121 24 121/75 (90) 94 10/30/19 00:00 Nasal Cannula 3.0 10/29/19 21:00 121 104/50 10/29/19 20:00 101.0 122 24 143/89 (107) 99 10/29/19 20:00 116 10/29/19 20:00 Nasal Cannula 3.0 10/29/19 19:25 116 10/29/19 16:00 98.0 101 24 138/83 (101) 98 10/29/19 16:00 Nasal Cannula 3.0 Intake and Output 10/29/19 10/30/19 19:00 07:00 Intake Total 120 ml 620 ml Output Total 600 ml Balance -480 ml 620 ml Intake Oral 120 ml 620 ml Output Urine Total 600 ml # Voids 1 3 # Bowel Movements 1 1 Laboratory Tests 10/30/19 03:44: White Blood Count 13.1H, Red Blood Count 4.77, Hemoglobin 13.9L, Hematocrit 39.8L, Mean Corpuscular Volume 83, Mean Corpuscular Hemoglobin 29.1, Mean Corpuscular Hemoglobin Concent 34.9, Red Cell Distribution Width 11.8, Platelet Count 229, Mean Platelet Volume 7.9, Neutrophils (%) (Auto) 63.3, Lymphocytes (% ) (Auto) 22.7, Monocytes (%) (Auto) 10.4H, Eosinophils (%) (Auto) 2.4, Basophils (%) (Auto) 1.2, Sodium Level 140, Potassium Level 3.7, Chloride Level 101, Carbon Dioxide Level 29, Anion Gap 10, Blood Urea Nitrogen 10, Creatinine 0.9, Estimat Glomerular Filtration Rate > 60, Glucose Level 172#H, Calcium Level 9.0 Height (Feet): 6 Height (Inches): 2.00 Weight (Pounds): 378 General Appearance: WD/WN EENT: PERRL/EOMI Neck: non-tender Cardiovascular: normal rate Respiratory/Chest: lungs clear Abdomen: non tender Edema: trace edema 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
[2019-10-30 16:00] VITALS: BP 140/79
[2019-10-30] MEDS: Vancomycin 1gm in Dextrose 275ml IVPB SCH (16:43)
--- NOTE | 2019-10-30 17:27 | Diagnostic Imaging Report ---
Indication: Shoulder trauma, pain, fracture demonstrated on prior radiograph. Preoperative planning Technique: Noncontrast spiral acquisitions obtained through the left humerus Multiplanar and 3-D reconstructions were generated. Total dose length product 1632 mGycm. CTDIvol(s) 36 mGy. Radiation dose was minimized using automated exposure control Comparison: none Findings: The greater tuberosity is from the humeral head. It is displaced posteriorly by roughly 90 degrees and by roughly 4 cm. There is a single main fracture fragment and small fracture fragments are seen adjacent to both the greater tuberosity fragment but also anterior to the humeral head neck junction. There is a fracture fragment that measures approximately 17 mm in diameter located approximately 3.5 cm anteromedial to the humeral head. This is probably avulsed off the coracoid, as there is an irregular defect of the articular surface of the coracoid. This fragment is displaced approximately 3 cm from the coracoid. There is also slight cortical irregularity of the surface of the medial coracoid where it attaches to the scapula. This may be developmental, however. There is also a fracture of the anterior/inferior corner of the glenoid. This is displaced medially by about 7 mm No humeral shaft fracture demonstrated. No significant joint effusion demonstrated. Impression: Comminuted and severely posteriorly displaced greater tuberosity fracture, also demonstrated on recent plain radiographs and CT scan Displaced fracture of the anterior inferior corner of the glenoid Displaced fracture of the tip of the coracoid process, as described, also noted on prior chest CT Findings discussed by phone with Dr. Genao at the time of interpretation The CT scanner at [facility] is accredited by the [employer] [place] [employer] and the scans are performed using protocols designed to limit radiation exposure to as low as reasonably achievable to attain images of sufficient resolution adequate for diagnostic evaluation.
[2019-10-30 20:00] VITALS: BP 133/78
[2019-10-31] VITALS: BP 135/88
[2019-10-31] MEDS: Vancomycin 1gm in Dextrose 275ml IVPB SCH ×2 (00:06→09:18)
[2019-10-31 04:00] VITALS: BP 132/99
[2019-10-31 05:50] LABS: BASOPHILS % (AUTO) 1.3 % (0.0-2.0); EOSINOPHILS % (AUTO) 5.1 % (0.0-3.0); HEMATOCRIT 39.3 % (42.0-52.0); HEMOGLOBIN 13.5 G/DL (14.2-18.0); LYMPHOCYTES % (AUTO) 26.6 % (20.0-45.0); MEAN CORPUSCULAR VOLUME 83 FL (80-99); MONOCYTES % (AUTO) 10.2 % (1.0-10.0); NEUTROPHILS % (AUTO) 56.9 % (45.0-75.0); PLATELET COUNT 252 K/UL (150-450); RED BLOOD COUNT 4.75 M/UL (4.70-6.10); RED CELL DISTRIBUTION WIDTH 11.8 % (11.6-14.8); WHITE BLOOD COUNT 11.2 K/UL (4.8-10.8)
[2019-10-31 06:12] LABS: ALANINE AMINOTRANSFERASE 77 U/L (12-78); ALBUMIN/GLOBULIN RATIO 0.7 (1.0-2.7); ALKALINE PHOSPHATASE 70 U/L (46-116); ANION GAP 10 mmol/L (5-15); ASPARTATE AMINO TRANSFERASE 61 U/L (15-37); BILIRUBIN,TOTAL 0.6 MG/DL (0.2-1.0); BLOOD UREA NITROGEN 11 mg/dL (7-18); CALCIUM 8.8 MG/DL (8.5-10.1); CARBON DIOXIDE 28 MMOL/L (21-32); CHLORIDE 101 MMOL/L (98-107); CREATININE 0.8 MG/DL (0.55-1.30); POTASSIUM 3.7 MMOL/L (3.5-5.1); SODIUM 139 MMOL/L (136-145)
[2019-10-31] MEDS: NovoLOG Insulin Flexpen SUBQ SCH (06:30)
--- NOTE | 2019-10-31 07:30 | Orthopedic Progress Note ---
Orthopedic - Progress Note Subjective Symptoms: c/o shoulder pain Objective Last 24 Hour Vital Signs Date Time Temp Pulse Resp B/P (MAP) Pulse Ox O2 Delivery O2 Flow Rate FiO2 10/31/19 04:00 Room Air 10/31/19 04:00 98.4 111 20 132/99 (110) 94 10/31/19 03:34 107 10/31/19 00:00 Room Air 10/31/19 00:00 100.0 102 20 135/88 (104) 95 10/30/19 23:26 100 10/30/19 20:38 71 133/78 10/30/19 20:16 95 Nasal Cannula 2.0 28 10/30/19 20:00 99.9 110 20 133/78 (96) 97 10/30/19 20:00 106 10/30/19 20:00 Room Air 10/30/19 16:00 99.1 104 20 140/79 (99) 94 10/30/19 16:00 Nasal Cannula 3.0 10/30/19 15:41 108 10/30/19 12:00 97.2 99 20 129/74 (92) 94 10/30/19 12:00 Nasal Cannula 3.0 10/30/19 11:35 98 10/30/19 08:42 98 117/72 10/30/19 08:00 Nasal Cannula 3.0 10/30/19 08:00 97.5 111 20 117/72 (87) 95 111 10/30/19 07:55 94 Nasal Cannula 3.0 32 10/30/19 07:36 112 Intake and Output 10/30/19 10/31/19 19:00 07:00 Intake Total 1235.000 ml 275.000 ml Balance 1235.000 ml 275.000 ml Intake Oral 960 ml IV Total 275.000 ml 275.000 ml # Voids 2 # Bowel Movements 2 Laboratory Tests Test 10/31/19 03:15 White Blood Count 11.2 K/UL (4.8-10.8) H Red Blood Count 4.75 M/UL (4.70-6.10) Hemoglobin 13.5 G/DL (14.2-18.0) L Hematocrit 39.3 % (42.0-52.0) L Mean Corpuscular Volume 83 FL (80-99) Mean Corpuscular Hemoglobin 28.5 PG (27.0-31.0) Mean Corpuscular Hemoglobin Concent 34.4 G/DL (32.0-36.0) Red Cell Distribution Width 11.8 % (11.6-14.8) Platelet Count 252 K/UL (150-450) Mean Platelet Volume 8.6 FL (6.5-10.1) Neutrophils (%) (Auto) 56.9 % (45.0-75.0) Lymphocytes (%) (Auto) 26.6 % (20.0-45.0) Monocytes (%) (Auto) 10.2 % (1.0-10.0) H Eosinophils (%) (Auto) 5.1 % (0.0-3.0) H Basophils (%) (Auto) 1.3 % (0.0-2.0) Sodium Level 139 MMOL/L (136-145) Potassium Level 3.7 MMOL/L (3.5-5.1) Chloride Level 101 MMOL/L (98-107) Carbon Dioxide Level 28 MMOL/L (21-32) Anion Gap 10 mmol/L (5-15) Blood Urea Nitrogen 11 mg/dL (7-18) Creatinine 0.8 MG/DL (0.55-1.30) Estimat Glomerular Filtration Rate > 60 mL/min (>60) Glucose Level 163 MG/DL (74-106) H Calcium Level 8.8 MG/DL (8.5-10.1) Total Bilirubin 0.6 MG/DL (0.2-1.0) Aspartate Amino Transf (AST/SGOT) 61 U/L (15-37) H Alanine Aminotransferase (ALT/SGPT) 77 U/L (12-78) Alkaline Phosphatase 70 U/L (46-116) Total Protein 7.4 G/DL (6.4-8.2) Albumin 3.0 G/DL (3.4-5.0) L Globulin 4.4 g/dL Albumin/Globulin Ratio 0.7 (1.0-2.7) L Additional Comments I reviewed the CT of the left proximal humerus. there is significant displacement of the greater tuberosity and I recommend operative fixation. This is not urgent but is time sensitive. He will follow up with his own physicians and surgeons to have outpatient surgery sometime in the next 10-12 days. Delays beyond that could affect outcome. Plan Plan: pain management, discharge plan Additional Comments He will be discharged with a left sling and will follow up with his physicians for confirmatory opinion and definitive treatment of the left proximal humerus fracture. Thank you for the opportunity to consult. Stanley Genao MD Oct 31, 2019 07:30
[2019-10-31 08:00] VITALS: BP 121/83
[2019-10-31] MEDS: Docusate 100mg cap ORAL SCH (09:10)
[2019-10-31] MEDS: Enoxaparin 40mg Inj SUBQ SCH (09:16)
[2019-10-31] MEDS ORDERED: Nitroglycerin Subl 0.4mg tab SL PRN (10:45)
[2019-10-31] MEDS ORDERED: Morphine Sulfate 2mg/ml Inj(IV/IM USE ONLY) IVP PRN (11:00)
[2019-10-31] MEDS ORDERED: LORazepam Inj 2mg/ml 1ml IV PRN (11:00)
[2019-10-31] MEDS ORDERED: Morphine Sulfate 4mg/ml Inj (IV USE ONLY) IVP PRN (11:00)
[2019-10-31] MEDS ORDERED: NovoLOG Insulin Flexpen SUBQ SCH (11:30)
[2019-10-31 12:00] VITALS: BP 131/80
--- NOTE | 2019-10-31 14:37 | Discharge Instructions ---
Discharge Instructions Discharge Instructions Follow up with: PCP and orthopedist within [facility] at Discharge: outpatient therapy Diet: diabetic calorie control Activity: as tolerated, other - left arm sling Special Instructions needs PCP and orthopedic appointment within network [facility]. CD with copy of CT scan humerus given by RN For Surgical Patients May shower: Yes For Congestive Heart Failure Reminder Report to your physician any weight gain of 5 pounds or more in one week. Roque Whitley MD Oct 31, 2019 14:37
--- NOTE | 2019-10-31 14:43 | Discharge Summary ---
Discharge Summary Hospital Course Date of Admission Oct 27, 2019 at 20:30 Date of Discharge 10/30/19 Admitting Diagnosis Seizure Tachycardia, left humeral fracture HPI Hung Elkins is a 48 year old male who was admitted on Oct 27, 2019 at 20:30 for Seizure and Tachycardia Consultations Orthopedic surgery Dr. Genao Procedures none Hospital Course 48 y/o male admitted to the hospital with: # Unwitnessed seizure Keppra load 1000mg given in ER Will continue and increased his home dose Keppra from 500 to 750 mg BID The patient did not have any new seizure activity and was continued on the new 750 mg BID Keppra. # Rule out Covid 19 started in ER is now NEGATIVE Transfer to Med surg No need for droplet isolation. # L humeral fracture Dr. Genao consulted and CT ordered. Per Orthopedist: CT of the left proximal humerus. there is significant displacement of the greater tuberosity and I recommend operative fixation. This is not urgent but is time sensitive. He will follow up with his own physicians and surgeons to have outpatient surgery sometime in the next 10-12 days. Delays beyond that could affect outcome. Left arm sling provided. # Obesity Lipid panel and HbA1c is 8.7 with NEW DETECTED Diabetes. DM education and diet was provided. He was discharged on Metformin 50 mg BID and needs PCP follow up. # Hypertensive heart disease Start metoprolol and will defer to PCP further therapy. # Probable TERRENCE Monitor for hypoxia Pulmonary outpatient follow up for sleep study. PCP appt pending for 11/15 Trial of CPAP qhs was done in the Hospital and tolerated. # Possible underlying infection/bacteremia 2/2 blood cultures positive and likely contaminant with Staph Saprophyticus. Blood cultures repeated today and Rx for Bactrim BID was provided. If the new cultures are negative patient will be called to stop Bactrim at [phone] medically stable to discharge home. Discharge Discharge Vital Signs Last Vital Signs Date Time Temp Pulse Resp B/P (MAP) Pulse Ox O2 Delivery O2 Flow Rate FiO2 10/31/19 12:00 99.2 95 18 131/80 (97) 98 10/31/19 08:00 Room Air 10/30/19 20:16 2.0 28 Discharge Disposition Patient was discharged to Home Discharge Diagnoses: (1) Closed left humeral fracture (2) Humeral fracture (3) Seizure (4) Tachycardia Discharge Instructions Discharge Instructions Follow up with: PCP and orthopedist within [facility] Upon Discharge: outpatient therapy Activity: as tolerated, other - left arm sling For Surgical Patients May shower: Yes Roque Whitley MD Oct 31, 2019 14:43
[2019-10-31] MEDS ORDERED: Vancomycin 1 GM in D5W 275 ML IVPB SCH ×2 (16:00→18:00)
[2019-10-31] MEDS ORDERED: Docusate 100mg cap ORAL SCH (21:00)
[2019-11-01] MEDS ORDERED: Enoxaparin 40mg Inj SUBQ SCH (09:00)
== END 2019-10-31 16:00 | disposition home or self-care (01) | DRG 342 ==
LOC: EDBD 16:30 → EMR 16:57 → ICU 20:30 → EDBEDREQ 21:02 → EDBEDREQSVC 21:03 → EDBEDREQ 10-28 00:17 → 2W 10-29 06:50 → 3E 10-31 10:40
DX: S42.202A Unspecified fracture of upper end of left humerus, initial encounter for closed fracture (principal); W19.XXXA Unspecified fall, initial encounter; G40.909 Epilepsy, unspecified, not intractable, without status epilepticus; E66.01 Morbid (severe) obesity due to excess calories; Z68.42 Body mass index [BMI] 45.0-49.9, adult; G47.33 Obstructive sleep apnea (adult) (pediatric); R00.0 Tachycardia, unspecified; I11.9 Hypertensive heart disease without heart failure
CPT/HCPCS: 36415; 36600; 70450; 71045; 71275; 80048; 80053; 80061; 80202; 80299; 80307; 81003; 82803; 82962; 83036; 83735; 84075; 84100; 84484; 85025; 85379; 87040; 87081; 87181; 87635; 93005; 96361; 96365; 96372; 99291; J1815; J7030

== ENCOUNTER 2020-05-06 11:17 | Emergency (ER) | payer MEDICAID ==
[~2020-05-06] VITALS: Ht 188 cm; Wt 131.5 kg
[~2020-05-06 11:17] MED LIST changes: +VITAMIN D3 COM1 EACH PO; +VITAMIN D32400 UNIT/ MC
[2020-05-06] MEDS ORDERED: levETIRAcetam 500mg/NS100ml 110 ML IV ONE (11:30)
--- NOTE | 2020-05-06 11:35 | NUR ---
ED Nurse Note: Pt was brought in by RA Alicia from home s/p tonic clonic sz witnessed by a friend, lasted about 2 to 3 mins. Pt is AOx3, calm and cooperative to care, denies any head trauma. Per report, last episode of seizure happened 2 weeks ago. Pt was placed on bed, hooked to school lunch monitor, seizure pads in placed, bed on low position. will continue to monitor pt.
[2020-05-06 12:16] VITALS: BP 135/90
[2020-05-06 12:22] LABS: BASOPHILS % (AUTO) 1.3 % (0.0-2.0); EOSINOPHILS % (AUTO) 2.6 % (0.0-3.0); HEMATOCRIT 48.2 % (42.0-52.0); HEMOGLOBIN 15.1 G/DL (14.2-18.0); LYMPHOCYTES % (AUTO) 20.3 % (20.0-45.0); MEAN CORPUSCULAR VOLUME 92 FL (80-99); MONOCYTES % (AUTO) 8.6 % (1.0-10.0); NEUTROPHILS % (AUTO) 67.2 % (45.0-75.0); PLATELET COUNT 235 K/UL (150-450); RED BLOOD COUNT 5.21 M/UL (4.70-6.10); RED CELL DISTRIBUTION WIDTH 15.5 % (11.6-14.8); WHITE BLOOD COUNT 8.8 K/UL (4.8-10.8)
[2020-05-06 12:36] LABS: ANION GAP 5 mmol/L (5-15); BLOOD UREA NITROGEN 10 mg/dL (7-18); CARBON DIOXIDE 33 MMOL/L (21-32); CHLORIDE 103 MMOL/L (98-107); POTASSIUM 4.6 MMOL/L (3.5-5.1); SODIUM 140 MMOL/L (136-145)
[2020-05-06 12:40] LABS: ALANINE AMINOTRANSFERASE 139 U/L (12-78); ALBUMIN/GLOBULIN RATIO 0.9 (1.0-2.7); ALKALINE PHOSPHATASE 71 U/L (46-116); ASPARTATE AMINO TRANSFERASE 93 U/L (15-37); BILIRUBIN,TOTAL 0.3 MG/DL (0.2-1.0)
--- NOTE | 2020-05-06 12:44 | NUR ---
ED Nurse Note: DMV form faxed.
--- NOTE | 2020-05-06 13:08 | NUR ---
ED Nurse Note: Pt on bed, lethargic, VSS, notified ERMD.
--- NOTE | 2020-05-06 13:24 | NUR ---
ED Nurse Note: Patient taken to CT scan.
--- NOTE | 2020-05-06 13:25 | NUR ---
ED Nurse Note: Spoke to Mandy lab scientist and will run add-on tests.
--- NOTE | 2020-05-06 13:46 | NUR ---
ED Nurse Note: Patient returned from CT scan. Placed patient back on the monitor. Seizure precaution maintained. Bed in lowest position. Addendum: 05/06/20 at 1403 by ENRIQUE Patient awake, alert, oriented x3. Regular, unlabored breathing noted. Patient states he can call his brother for a ride.
[2020-05-06] MEDS ORDERED: KEPPRA1000 MG ORAL (14:09)
--- NOTE | 2020-05-06 14:11 | Emergency Room Report ---
History of Present Illness General Chief Complaint: Seizure Source: Patient, EMS Present Illness HPI 49-year-old male with history of seizure disorder on Keppra 750 mg p.o. twice daily brought in by ambulance status post witnessed seizure prior to arrival. Seizure was witnessed by his friend. Prior to experiencing the seizure, patient was sitting in a chair. EMS states that according to the friend, there was no head trauma, loss of bowel or bladder function, or any abnormalities different from his regular epileptic seizures. Patient follows with a neurologist at [facility] and she recently increased the doses of his medications (Keppra) 2 weeks ago during his last breakthrough seizure. He was postictal on EMS arrival. Accu-Chek was within normal limits. He is now neurologically intact, GCS 15. He denies fever, headache, photophobia, rash, neck pain, chest pain, shortness of breath, nausea, vomiting, diarrhea, chest pain or any other symptoms. He has been compliant with his Keppra. The patient's symptoms were gradual onset, severity was moderate, duration since 1 day. Quality: Tonic-clonic seizure Past medical history: Seizures Past surgical history: Denies Smoking: Denies Alcohol use: Denies Drug use: Denies Review of systems: CONST: No fevers or chills, No night sweats PULMONARY: No productive cough, No shortness of breath CARDIAC: No chest pain, No palpitations GI: No vomiting, No diarrhea , No melena_or_BRBPR : No dysuria, No hematuria, No discharge NEURO: No new_focal_weakness_or_numbness, No confusion, No vision changes 14 point Review of Systems is otherwise negative except per HPI Physical Exam: GENERAL: Awake_alert but mildly confused_ nontoxic, no acute distress Spo2 97% on RA -normal EYES: Extraocular muscles are intact. Conjunctivae clear. Lids without swelling. No nystagmus. ENT: External nose and ear normal_in_appearance. Oropharynx clear. Head_atraumatic, Moist_oral_mucosa. No oropharyngeal laceration NECK: No JVD. No meningismus. No thyromegaly. Supple. Trachea midline RESP: Normal respiratory effort. Symmetric rise. No stridor. Clear_to_auscultation_No_rales_No_wheezes CARDIAC: Regular rate and regular rhytm. No_significant pedal edema. ABDOMEN: Soft. Nondistended. Nontender_No_rebound_or_guarding. MSK: Normal muscle tone, without rigidity. Extremities without asymmetric deformity or swelling. SKIN: Warm and dry. No visible cyanosis or pallor NEUROLOGIC: Alert, oriented x3. Motor_and_sensation_grossly_intact. No truncal ataxia. Gait_normal Psych: Normal mood and affect, normal judgment and insight - COORDINATION OF CARE Case was discussed with: Patient Any labs and imaging that were ordered were interpreted as part of the medical decision making: Medical Decision Making/Plan: Differential includes brain tumor, intracranial bleeding, metabolic encephalopathy, hyponatremia, hypoglycemia, among others. Labs were checked, which were reassuring, no evidence of severe acidosis, or significant metabolic derangement. CT was ordered, given that patient had slow decline back to baseline mental status after being postictal. Preliminary CT shows atrophy out of proportion to age. No subarachnoid hemorrhage. No bleeding. No mass. 1400: Patient is back to their baseline neurologic status. He is asking to leave and already speaking with his family on the telephone to pick him up from ER to provide transportation home. No headache, not consistent with subarachnoid hemorrhage , no indication for LP. Pt is very low risk for subarachnoid hemorrhage - CT negative for any blood w ithin 6 hours of symptoms. Patient had serial neurologic exams in the ER, and is back to baseline, no neuro deficits, ambulating steadily without any assistance, and stable for dc home and f/u with PMD. Received Keppra in the ED. No repeat seizure Patient instructed not to drive until cleared by PMD, and DMV form faxed. Strict 911 return precautions discussed. Patient dcd to family Allergies: Coded Allergies: No Known Allergies (Unverified , 04/25/15) COVID-19 Screening Contact w/high risk pt: No Recent Travel to affected area: No Experienced COVID-19 symptoms?: No COVID-19 symptoms experienced: Fever (T>100.4F or >38C) COVID-19 Testing performed INVESTIGATIONS CHIEF: No Nursing Documentation-PMH Hx Cardiac Problems: No Hx Diabetes: Yes Hx Cancer: No Hx Gastrointestinal Problems: No Hx Neurological Problems: Yes Hx Seizures: Yes Physical Exam Vital Signs Date Time Temp Pulse Resp B/P (MAP) Pulse Ox O2 Delivery O2 Flow Rate FiO2 05/06/20 11:07 74 18 135/90 (105) 97 Room Air Sp02 EP Interpretation: reviewed, normal Medical Decision Making Diagnostic Impression: Primary Impression: Breakthrough seizure EKG Diagnostic Results Troponin ordered: No Rhythm Strip Diag. Results Rhythm Strip Time: 14:09 EP Interpretation: yes Rate: 74 Rhythm: NSR, no PVC's, no ectopy CT/MRI/US Diagnostic Results CT/MRI/US Diagnostic Results : Impression Prelim CT head Indication Seizure Impression: Advanced atrophy for age. NAD Read By Dr Mac Carvajal MD 05/06/2020 Reevaluation Time: 14:09 Last Vital Signs Date Time Temp Pulse Resp B/P (MAP) Pulse Ox O2 Delivery O2 Flow Rate FiO2 05/06/20 12:16 18 135/90 97 Room Air 05/06/20 12:16 74 Status: improved Disposition: HOME, SELF-CARE Admit Decision Time: 14:09 Condition: Stable Scripts Levetiracetam (KEPPRA) 1,000 Mg Tablet 1000 MG ORAL BID for 14, #28 TAB 0 Refills Prov: Skylar Gallagher D.O. 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 See your neurologist in 1-[address] heavy machinery. Follow-up with your doctor sooner if your condition requires a more timely clinical reevaluation. Return to the emergency department immediately if you feel that your condition is worsening or if you have any new or concerning symptoms. Review your discharge instructions and take any prescriptions given as instructed. [facility] PROVIDES FREE OR LOW-COST HEALTH SERVICES TO PEOPLE WHO CAN SHOW PROOF THAT THEY LIVE IN [facility]. TO FIND MORE CLINICS PARTNERED WITH [facility] TO PROVIDE SERVICE, PLEASE CALL . Skylar Gallagher D.O. May 06, 2020 14:11
[2020-05-06 15:58] VITALS: BP 135/86
--- NOTE | 2020-05-06 15:58 | NUR ---
ER DISCHARGE NOTE: Patient is cleared to be discharged per ERMD, pt is aox4, on room air, with stable vital signs. pt was given dc and prescription instructions, pt was able to verbalize understanding, pt id band and iv site removed without complications. pt is able to ambulate with steady gait. pt took all belongings.
--- NOTE | 2020-05-07 15:12 | Diagnostic Imaging Report ---
Indications: Seizure Technique: Spiral acquisitions obtained through the brain. Angled axial and coronal 5 x 5 mm slices were reconstructed. Total dose length product 1125 mGycm. CTDI vol(s) 53 mGy. Dose reduction achieved using automated exposure control Comparison: None. 10/27/2019 Findings: There is age-related enlargement of the extra-axial CSF spaces in the frontal and anterior parietal region. The ventricles are also slightly prominent. No acute intracranial hemorrhage or edema, mass effect, nor midline shift. Normal trujillo-white differentiation. Visualized orbits are unremarkable. There is minimal right sphenoid sinus disease. The mastoids are clear. The calvarium is intact. Findings are unchanged Impression: Cerebral volume loss, somewhat out of proportion to age Negative for acute intracranial bleed or mass effect Handwritten preliminary report previously provided to the emergency room via the PACS system The CT scanner at [facility] is accredited by the [employer] and the scans are performed using protocols designed to limit radiation exposure to as low as reasonably achievable to attain images of sufficient resolution adequate for diagnostic evaluation.
== END 2020-05-06 15:58 | disposition home or self-care (01) ==
LOC: EDBD 11:17 → EMR 11:40
DX: G40.909 Epilepsy, unspecified, not intractable, without status epilepticus (principal); E11.9 Type 2 diabetes mellitus without complications
CPT/HCPCS: 36415; 70450; 80053; 85025; 96374; G0480; G0481; J1953; Z7502; 99284